=== PATIENT | male | born 1990 | race Caucasian/White ===

== ENCOUNTER 2021-07-08 04:20 | Emergency (ER) | payer BC ==
[2021-07-08 05:39] LABS: CORONAVIRUS COVID-19 NAA POSITIVE (NEGATIVE); INFLUENZA A NAA NEGATIVE (NEGATIVE); INFLUENZA B NAA NEGATIVE (NEGATIVE)
== END 2021-07-08 06:10 | disposition home or self-care (01) ==
LOC: MW.ED 04:20
DX: U07.1 COVID-19 (principal); H61.22 Impacted cerumen, left ear
CPT/HCPCS: 0240U; 71045; 99283